=== PATIENT | female | born 1990 | race Two or more races ===

== ENCOUNTER 2020-04-13 14:29 | Emergency (ER) | payer OTHER ==
[~2020-04-13] VITALS: Ht 154.9 cm; Wt 65.8 kg
== END 2020-04-13 16:57 | disposition home or self-care (01) ==
LOC: ER 14:29
DX: S01.511A Laceration without foreign body of lip, initial encounter (principal); W22.8XXA Striking against or struck by other objects, initial encounter; Y93.19 Activity, other involving water and watercraft; Y92.838 Other recreation area as the place of occurrence of the external cause; Y99.8 Other external cause status